=== PATIENT | male | born 1980 | race Caucasian/White ===

== ENCOUNTER → 2020-09-22 | Outpatient (CLI) | payer OTHER ==
--- NOTE | 2020-09-23 09:02 | RAD ---
EXAM: 2 views left tibia/fibula DATE: 09/22/2020 3:56 PM INDICATION: Reason: FOLLOW UP RIF / Spl. Instructions: / History: . COMPARISON: No Prior FINDINGS/IMPRESSIO: Postoperative changes of reduction and fixation of the proximal tibia is in compared alignment withou t hardware complication. Electronically signed by: Dannie Martinez MD (09/23/2020 9:00 AM) [id number]
== END ==
LOC: RAD 15:35
PROVIDERS: ATTEND Orthopaedic Surgery
DX: M79.662 Pain in left lower leg (principal)
CPT/HCPCS: 73590

== ENCOUNTER → 2020-11-03 | Outpatient (CLI) | payer OTHER ==
--- NOTE | 2020-11-04 10:45 | RAD ---
XR LT TIBIA + FIBULA History: Reason: 3 MONTH S/P SURGERY / Spl. Instructions: / History: Technique: 2 views tibia and fibula. Comparison: September 22, 2020 Findings: Internal fixation healing proximal tibial fracture with lateral plate and multiple screws. Fracture l ine is still evident. Unchanged alignment. Chondrocalcinosis within the medial compartment. Impression: 1. Internal fixation healing proximal tibial fracture. No hardware complications. Electronically signed by: Manjeet Palomares DO (11/04/2020 10:42 AM) [id number]
== END ==
LOC: RAD 15:14
PROVIDERS: ATTEND Orthopaedic Surgery
DX: S82.292D Other fracture of shaft of left tibia, subsequent encounter for closed fracture with routine healing (principal); X58.XXXD Exposure to other specified factors, subsequent encounter
CPT/HCPCS: 73590

== ENCOUNTER → 2021-01-06 | Outpatient (CLI) | payer OTHER ==
--- NOTE | 2021-01-07 05:27 | RAD ---
Left ankle x-rays 3 views HISTORY: Left ankle pain. FINDINGS: No fracture. No dislocation. No talus osteochondral lesion. Small os peroneus on the latera l view. Soft tissues are unremarkable. IMPRESSION: No acute osseous injury. Electronically signed by: Nicolas Carter MD (01/07/2021 5:25 AM) [facility]
== END ==
LOC: RAD 16:26
PROVIDERS: ATTEND Orthopaedic Surgery
DX: M25.872 Other specified joint disorders, left ankle and foot (principal)
CPT/HCPCS: 73610